=== PATIENT | female | born 1985 | race Caucasian/White ===

== ENCOUNTER 2017-10-03 11:10 | Day surgery (SDC) | payer OTHER ==
[~2017-10-03 11:10] MED LIST: HYDROmorphone HCL 2 MG/ML 1ML VIAL (J1170) As Ordered; LIDOCAINE 2% INJ 100 MG/5 ML SDV (FOR ANES.) As Ordered; MIDAZOLAM INJ 2 MG/2 ML VIAL (J2250) As Ordered; ONDANSETRON 4MG/2ML VIAL (J2405) As Ordered; PROPOFOL 200 MG/20 ML VIAL As Ordered; ROCURONIUM BROMIDE 50 MG/5 ML VIAL As Ordered; dexameTHASONE 4 MG/ML 1ML VIAL (J1100) As Ordered
[2017-10-03] MEDS ORDERED: SCOPOLAMINE 1MG TRANSDERMAL PATCH As Ordered (11:51)
[2017-10-03] MEDS ORDERED: UNASYN 3 GM VIAL As Ordered (11:54)
[2017-10-03] MEDS: LR 1,000 ML IV (12:10)
[2017-10-03] MEDS: SCOPOLAMINE 1MG TRANSDERMAL PATCH TOP (12:12)
[2017-10-03] MEDS: AMPICILLIN SOD/SULBACTAM SOD 3 GM in D5W MINI-BAG PLUS 100 ML IV (12:16)
[2017-10-03] MEDS: LIDOCAINE 2% W/ EPINEPHRINE 1.7 ML DENTAL INJ As Ordered (12:45)
[2017-10-03] MEDS ORDERED: ONDANSETRON 4MG/2ML VIAL (J2405) As Ordered (13:38)
[2017-10-03] MEDS: ONDANSETRON 4MG/2ML VIAL (J2405) IV (13:41)
[2017-10-03] MEDS: PERCOCET 5MG/325MG TAB PO ×2 (13:59→14:31)
[2017-10-03] MEDS ORDERED: LR 1,000 ML IV (14:00)
[2017-10-03] MEDS ORDERED: fentaNYL 100 MCG/2 ML INJECTION (J3010) IV (14:00)
[2017-10-03] MEDS ORDERED: HYDROMORPHONE HCL 0.5 MG/ 0.5 ML SYRINGE (J1170 PER 1) IV (15:00)
== END 2017-10-03 15:30 | disposition home or self-care (01) ==
LOC: M SDC 11:10
DX: K02.9 Dental caries, unspecified (principal); M27.8 Other specified diseases of jaws; I48.91 Unspecified atrial fibrillation; I25.10 Atherosclerotic heart disease of native coronary artery without angina pectoris; Z92.21 Personal history of antineoplastic chemotherapy; Z79.899 Other long term (current) drug therapy; F17.210 Nicotine dependence, cigarettes, uncomplicated; Z88.5 Allergy status to narcotic agent; Z91.040 Latex allergy status; Z91.041 Radiographic dye allergy status; Z91.013 Allergy to seafood; Z91.030 Bee allergy status
CPT/HCPCS: D7210